=== PATIENT | female | born 1960 | race Caucasian/White ===

== ENCOUNTER 2017-09-18 01:31 | Emergency (ER) | payer SELFPAY ==
[~2017-09-18] VITALS: Ht 154.9 cm; Wt 52.2 kg
--- NOTE | 2017-09-18 01:48 | NUR ---
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 DENIES KO. PT AOX4 RR EVEN AND UNLABORED. NO SOB NOTED. NAD NOTED. NO NVD AT THIS TIME. PT NOT DIAPHRORETIC. PT GOWNED AND PLACED ON MONITOR. DR. MOLINA AT BEDSIDE FOR EVAL.
[2017-09-18] MEDS ORDERED: KETOROLAC TROMETHAMINE INJ 30 MG/ML VIAL ONE (01:57)
[2017-09-18] MEDS ORDERED: KETOROLAC TROMETHAMINE INJ 30 MG/ML VIAL IM ONE (02:00)
--- NOTE | 2017-09-18 02:08 | NUR ---
RADIOLOGY AT BEDSIDE FOR CXR
--- NOTE | 2017-09-18 02:46 | NUR ---
DR. MOLINA AT BEDSIDE SPEAKING TO PT REGARDING POC/ RESULTS.
[2017-09-18] MEDS ORDERED: ONDANSETRON HCL/PF 4 MG/2 ML VIAL ONE (02:53)
[2017-09-18] MEDS ORDERED: HYDROMORPHONE INJ 2 MG/ML DISP.SYRIN ONE (02:54)
[2017-09-18] MEDS ORDERED: HYDROMORPHONE INJ 2 MG/ML DISP.SYRIN IV ONE (03:00)
[2017-09-18] MEDS ORDERED: ONDANSETRON HCL/PF 4 MG/2 ML VIAL IVP ONE (03:00)
--- NOTE | 2017-09-18 04:00 | NUR ---
IV removed. Catheter intact and site benign. Pressure and 4x4 applied to site. No bleeding noted. Patient discharged to home in stable condition. Written and verbal after care instructions given. Patient verbalizes understanding of instruction. ambulatory with a steady gait. instructed pt not to drive. pt verbalize understanding.
[2017-09-18 05:59] VITALS: BP 122/72
== END 2017-09-18 04:00 | disposition home or self-care (01) ==
LOC: ER 01:33
DX: S20.212A Contusion of left front wall of thorax, initial encounter (principal); I10 Essential (primary) hypertension; W18.39XA Other fall on same level, initial encounter; Y93.89 Activity, other specified; Y92.89 Other specified places as the place of occurrence of the external cause; Y99.8 Other external cause status
CPT/HCPCS: 71100-TC; A4606; J1170; J1885; J2405; Z7610